=== PATIENT | female | born 1975 | race American Indian/Alaskan Native ===

== ENCOUNTER 2017-02-04 18:30 | Inpatient (IN) | payer MEDICARE, OTHER, MEDICAID ==
--- NOTE | 2017-02-04 19:00 | ED PDOC ---
Psych Transfer Clearance - Clearance Statement Clearance Statement: Reviewed vital signs, lab results and transfer papers. Patient clinically stable for psychiatric admission.
[2017-02-04] MEDS ORDERED: DiphenhydrAMINE 50 mg/ml Inj IM PRN (20:09)
[2017-02-04] MEDS ORDERED: Magnesium Hydroxide Susp 30 ml UD PO PRN (20:09)
[2017-02-04] MEDS ORDERED: Alum-Mag Hydrox-Simethicone Susp (30 mL) PO PRN (20:09)
[2017-02-04] MEDS ORDERED: Bismuth Subsalicylate 262 mg/15 ml Sus (240 ml) PO PRN (20:13)
[2017-02-05 07:47] LABS: MEAN CELL VOLUME 92.1 fl (81.0-99.0); MEAN CORPUSCULAR HEMOGLOBIN 30.4 pg (27.0-31.0); RED CELL DISTRIBUTION WIDTH 12.6 % (11.5-14.5); WHITE BLOOD COUNT 3.2 K/uL (4.8-10.8)
[2017-02-05 07:48] LABS: ALB/GLOB RATIO 1.1 (1.0-2.1); ALKALINE PHOSPHATASE 83 U/L (38-126); ALT/SGPT 35 U/L (9-52); AST/SGOT 33 U/L (14-36); BILIRUBIN,TOTAL 0.6 mg/dl (0.2-1.3); BLOOD UREA NITROGEN 16 mg/dl (7-17); CALCIUM 8.8 mg/dL (8.4-10.2); CARBON DIOXIDE 27 mmol/L (22-30); CHLORIDE 103 mmol/L (98-107); CHOLESTEROL 198 mg/dL (0-199); GFR AFRICAN-AMERICAN > 60; GLUCOSE,RANDOM 85 mg/dL (65-105); POTASSIUM 4.3 MMOL/L (3.6-5.0); SODIUM 141 mmol/l (132-148); TOTAL PROTEIN 7.6 G/DL (6.3-8.2)
[2017-02-05 08:05] LABS: T4 5.32 ug/dl (5.5-11.0)
--- NOTE | 2017-02-05 12:51 | PCM.PSYCH ---
Initial Psychiatric Evaluation - Initial Psychiatric Evaluation Type of Admission: Voluntary Legal Status: Capacity Chief Complaint (in patient's own words): the woman at the snf doesn't like me Patient's Reaction to Hospitalization: cooperative History of Present Illness and Precipitating Events: pt seen in team. she is with a history of schizophrenia and is a transfer from [facility]. she is living in a homeless snf and apparently not getting along with the management. she has frequent hospitalizations for suicide attempts/psychosis. she states that she wanted to overdose because the copyright manager of the snf wouldn't sign a form that would get the pt permanent housing. she states she overdose on half a bottle of effexor and on klonopin. she was medically cleared. she is reporting she feels safe her in the hospital. she endorses that he has times where she is paranoid and delusional but will not elaborate. she was hospitalized a week ago. it is unclear if she takes medications outside of the hospital as she cannot list any active providers. Current Medications: Active Medications Generic Name Dose Route Start Last Admin Trade Name Freq PRN Reason Stop Dose Admin Acetaminophen 650 mg 02/04/17 20:09 Tylenol 325mg Tab PO Q4 PRN pain level 4-7 Al Hydrox/Mg Hydrox/Simethicone 30 ml 02/04/17 20:09 Maalox Plus 30 Ml PO Q4 PRN Dyspepsia Benztropine Mesylate 0.5 mg 02/06/17 09:00 Cogentin PO DAILY DASH Bismuth Subsalicylate 524 mg 02/04/17 20:13 Pepto-Bismol PO Q4 PRN Diarrhea Diphenhydramine HCl 50 mg 02/04/17 20:09 Benadryl PO Q6 PRN Extrapyramidal Symptoms Diphenhydramine HCl 50 mg 02/04/17 20:09 Benadryl IM Q6 PRN Extrapyramidal S/S Unable PO Diphenhydramine HCl 50 mg 02/04/17 20:13 Benadryl PO HS PRN Sleep Haloperidol 5 mg 02/04/17 20:09 Haldol PO Q4 PRN Agitation Haloperidol Lactate 5 mg 02/04/17 20:09 Haldol IM Q4 PRN Agitation, Unable to Take PO Levothyroxine Sodium 150 mcg 02/06/17 09:00 Synthroid PO DAILY DASH Lorazepam 2 mg 02/04/17 20:09 02/04/17 21:49 Ativan PO 2 mg Q4 PRN Administration Anxiety/Agitation Lorazepam 2 mg 02/04/17 20:09 Ativan IM Q4 PRN Anxiety/Agitation,Unable PO Magnesium Hydroxide 30 ml 02/04/17 20:09 Milk Of Magnesia PO HS PRN Constipation Risperidone 1 mg 02/05/17 22:00 Risperdal Tab PO HS DASH Past Psychiatric History - Past Psychiatric History Previous Treatment History: Inpatient At [facility]: [facility] History of Abuse: denies History of ETOH/Drug Use: denies use of alcohol, ? tobacco. denies illicit substance use History of Family Illness: unknown Pertinent Medical Hx (Current Medical&Sleep Prob, Allergies): Allergies Allergy/AdvReac Type Severity Reaction Status Date / Time Penicillins Allergy RASH Verified 02/04/17 18:34 IV contrast dye Allergy RASH Uncoded 02/04/17 18:34 Benztropine [Benztropine Mesylate] 0.5 mg PO DAILY 02/05/17 Clonazepam [Klonopin] 0.5 mg PO TID 02/05/17 FLUoxetine [Prozac] 10 mg PO DAILY 02/05/17 Levothyroxine [Synthroid] 150 mcg PO DAILY 02/05/17 Risperidone [Risperdal] 1 mg PO HS 02/05/17 Venlafaxine [Effexor] 37.5 mg PO DAILY 02/05/17 Review of Systems - Psychiatric Psychiatric: As Per HPI Mental Status Examination - Personal Presentation Personal Presentation: Looks stated age Additional comments: unkempt - Affect Affect: Blunted - Motor Activity Motor Activity: Calm - Reliability in Providing Information Reliability in Providing Information: Poor, due to alteration in thoughts - Speech Speech: Disorganized - Mood Mood: Neutral - Formal Thought Process Formal Thought Process: Delusions, Paranoia, Loosening of associations - Hallucinations/Delusions Delusions: Persecution - Obsessions/Compulsions Obsessions: No Compulsions: No - Cognitive Functions Orientation: Person, Place, Situation, Time Sensorium: Alert Attention/Concentration: Easily distracted Abstract Thinking: Dickson Estimate of Intelligence: Average Judgement: Intact, as evidence by: Insight regarding need for hospitalization Memory: Recent intact, as evidence by: Ability to recall events of the day, Remote intact, as evidenced by: Abilit to recall sig. life events - Risk Risk: Suicidal (multiple overdose attempts. feels safe in hospitals and denies thoughts currently), Diminished functioning - Strength & Assets Inventory Strength & Assets Inventory: Life experience - Limitations Limitations: Other (housing conflicts) DSM 5 DX - DSM 5 DSM 5 Diagnosis: schizoaffective disorder, depressive - Recommended/Plan of Treatment Treatment Recommendations and Plan of Treatment: admit to [facility] for safety and observation gather collateral information provide supportive therapy adjust medications- will dc effexor and klonopin and maximize risperdal/prozac dose- discussed plan with pt hospitalist consult disposition planning Projected ELOS: 3-5 days Prognosis: fair - Smoking Cessation Smoking Cessation Initiated: No Reason for not providing: declines
[2017-02-06] MEDS ORDERED: Levothyroxine 150 MCG TAB PO SCH (06:30)
--- NOTE | 2017-02-06 11:35 | PCM.PYCHPN ---
Psychiatric Progress Note - Psychiatric Progress Note Patient seen today, length of contact: discussed with team Patient Chief Complaint: i slept like a baby Problems Identified/Issues Discussed: no evidence of benzo withdrawal. states she feels less depressed. reports improved sleep. participating in groups. Medication Change: No Medical Record Reviewed: Yes Mental Status Examination - Cognitive Function Orientation: Person, Place, Situation, Time Memory: Intact Attention: WNL Concentration: WNL Association: WNL Fund of Knowledge: [facility] Decription of patient's judgement and insights: fair - Mood Mood: Neutral - Affect Affect: Blunted - Speech Speech: Appropriate - Formal Thought Process Formal Thought Process: Loosening of associations - Suicidal Ideation Suicidal Ideation: No Plan: denies suicidal thoughts - Homicidal Ideation Homicidal Ideation: No Goal/Treatment Plan - Goal/Treatment Plan Need for Continued Stay: Remain at risks for inpatient hospitalization, Severe functional impairment Progress Toward Problem(s) and Goals/Treatment Plan: schizoaffective disorder continue current treatment no medication changes today Estimated Date of D/C: 02/10/17
--- NOTE | 2017-02-06 12:52 | CP.PCM.CON ---
History of Present Illness - History of Present Illness History of Present Illness: Hospitalist Consult H&P (Patient was seen and examined at 11:45 AM 02/06/17 [id number] with Psychiatry Nurse [place]) 41 year old female attempted to overdose with Effexor and Klonopin because the district manager primary care sales at her homeless senior care would not sign documentation that would allow her to obtain permanent housing. Currently upon FULL ROS there is NO chest pain, NO palpitations, NO SOB/Cough/ Wheezing, NO dysphagia/odynophagia, NO abdominal pain, NO n/v/d/c (last bowel movement was yesterday), NO black/bloody stools, NO lightheadedness/dizziness, NO headaches, NO new changes in vision/eye pain, NO new changes in hearing/ear pain, NO edema, NO paresthesias PMHx: Schizophrenia, Suicide Attempt, Hypothyroidism PSHx: Hysterectomy ALL: PCN (edema) Medications: Please see list for Psychiatry Medications. Patient states that she is consistent in taking her Synthroid 150 mcg PO 1x/day Social Hx: Lives in Fdc, NO tobacco, NO Alcohol, NO illicit drugs Family Hx: Mom (DM I), Dad (Unaware of history) Review of Systems - Review of Systems Review of Systems: Please see above Past Patient History - Past Medical History & Family History Pertinent Family History: Please see above - CARDIAC Hx Cardiac Disorders: No - PULMONARY Hx Respiratory Disorders: No - NEUROLOGICAL Hx Neurological Disorder: No - HEENT Hx HEENT Problems: No - RENAL Hx Chronic Kidney Disease: No - ENDOCRINE/METABOLIC Hx Endocrine Disorders: No Hx Hypothyroidism: Yes - HEMATOLOGICAL/ONCOLOGICAL Hx Blood Disorders: No - INTEGUMENTARY Hx Dermatological Problems: No - MUSCULOSKELETAL/RHEUMATOLOGICAL Hx Musculoskeletal Disorders: No - GASTROINTESTINAL Hx Gastrointestinal Disorders: No - GENITOURINARY/GYNECOLOGICAL Hx Genitourinary Disorders: No - PSYCHIATRIC Hx Depression: Yes Hx Substance Use: No - SURGICAL HISTORY Hx Surgeries: No - ANESTHESIA Hx Anesthesia: No Meds Allergies/Adverse Reactions: Allergies Allergy/AdvReac Type Severity Reaction Status Date / Time Penicillins Allergy RASH Verified 02/04/17 18:34 IV contrast dye Allergy RASH Uncoded 02/04/17 18:34 - Medications Medications: Current Medications Acetaminophen (Tylenol 325mg Tab) 650 mg PO Q4 PRN PRN Reason: pain level 4-7 Last Admin: 02/06/17 09:09 Dose: 650 mg Al Hydrox/Mg Hydrox/Simethicone (Maalox Plus 30 Ml) 30 ml PO Q4 PRN PRN Reason: Dyspepsia Benztropine Mesylate (Cogentin) 0.5 mg PO DAILY [facility] Last Admin: 02/06/17 09:04 Dose: 0.5 mg Bismuth Subsalicylate (Pepto-Bismol) 524 mg PO Q4 PRN PRN Reason: Diarrhea Diphenhydramine HCl (Benadryl) 50 mg PO Q6 PRN PRN Reason: Extrapyramidal Symptoms Diphenhydramine HCl (Benadryl) 50 mg IM Q6 PRN PRN Reason: Extrapyramidal S/S Unable PO Diphenhydramine HCl (Benadryl) 50 mg PO HS PRN PRN Reason: Sleep Haloperidol (Haldol) 5 mg PO Q4 PRN PRN Reason: Agitation Haloperidol Lactate (Haldol) 5 mg IM Q4 PRN PRN Reason: Agitation, Unable to Take PO Levothyroxine Sodium (Synthroid) 150 mcg PO DAILY@0630 [facility] Last Admin: 02/06/17 06:17 Dose: 150 mcg Lorazepam (Ativan) 2 mg PO Q4 PRN PRN Reason: Anxiety/Agitation Last Admin: 02/04/17 21:49 Dose: 2 mg Lorazepam (Ativan) 2 mg IM Q4 PRN PRN Reason: Anxiety/Agitation,Unable PO Magnesium Hydroxide (Milk Of Magnesia) 30 ml PO HS PRN PRN Reason: Constipation Risperidone (Risperdal Tab) 1 mg PO HS [facility] Last Admin: 02/05/17 21:16 Dose: 1 mg Physical Exam - Constitutional Appears: Non-toxic, No Acute Distress - Head Exam Head Exam: ATRAUMATIC, NORMAL INSPECTION, NORMOCEPHALIC - Eye Exam Eye Exam: EOMI, Normal appearance, PERRL Pupil Exam: NORMAL ACCOMODATION, PERRL - ENT Exam ENT Exam: Mucous Membranes Moist, Normal Exam, Normal External Ear Exam, Normal Oropharynx - Neck Exam Neck exam: Positive for: Normal Inspection Additional comments: NO Lymphadenopathy NO Thyromegaly - Respiratory Exam Respiratory Exam: Clear to Auscultation Bilateral, NORMAL BREATHING PATTERN Additional comments: CTA B/L NO R/R/W - Cardiovascular Exam Cardiovascular Exam: REGULAR RHYTHM, +S1, +S2 Additional comments: NO M/R/G - GI/Abdominal Exam GI & Abdominal Exam: Normal Bowel Sounds Additional comments: BSx4, Soft, NT, ND, NO HSM, NO guarding/rebound tenderness - Extremities Exam Extremities exam: Positive for: normal inspection Additional comments: Pulses are strong and equal NO edema Capillary Refill is 2 Seconds - Neurological Exam Neurological exam: CN II-XII Intact Results - Vital Signs Recent Vital Signs: Last Vital Signs Temp 97.9 F 02/06/17 09:00 Pulse 79 02/06/17 09:00 Resp 16 02/06/17 09:00 BP 120/71 02/06/17 09:00 Pulse Ox 99 02/06/17 09:00 - Labs Result Diagrams: 02/05/17 07:10 02/05/17 07:10 Labs: Laboratory Results - last 24 hr 02/05/17 07:10 RPR Nonreactive Assessment & Plan (1) Schizoaffective disorder, depressive type Assessment and Plan: Treatment as per Psychiatry Team Status: Acute (2) Chronic knee pain Assessment and Plan: Patient states that she had a fall onto her Left Knee in November 2016 and she states that she had an X ray at [facility] which she states did not show fracture. She states that she had follow up scheduled with an [facility] Orth[facility] physician but missed appointment 2x as the senior care would not arrange for transportation. Exam of the bilateral knees was unremarkable. Non-tender to palpation, NO edema , NO erythema, NO creptis Branding Machine Tender should be consulted to help arrange for patient to be evaluated with outpatient Orthopedics. Status: Chronic (3) Hypothyroid Assessment and Plan: TSH is elevated at 28.3 and T4 is low at 5.32 Questionable if patient is taking the Synthroid regularly as she says is. However, Synthroid has been increased to 175 mcg PO 1x/day and repeat the Thyroid Studies in 4 weeks. Status: Chronic
[2017-02-07] MEDS: Levothyroxine 175 MCG TAB PO SCH (06:36)
--- NOTE | 2017-02-07 11:21 | PCM.PYCHPN ---
Psychiatric Progress Note - Psychiatric Progress Note Patient seen today, length of contact: discussed with team Patient Chief Complaint: i feel better Problems Identified/Issues Discussed: pt visible in milieu. takes medications. no withdrawal symptoms. less internally preoccupied. Medication Change: Yes (restart prozac) Medical Record Reviewed: Yes Mental Status Examination - Cognitive Function Orientation: Person, Place, Situation, Time Memory: Intact Attention: WNL Concentration: WNL Association: WNL Fund of Knowledge: WN Decription of patient's judgement and insights: improving - Mood Mood: Neutral - Affect Affect: Blunted - Speech Speech: Appropriate - Formal Thought Process Formal Thought Process: Loosening of associations - Suicidal Ideation Suicidal Ideation: No - Homicidal Ideation Homicidal Ideation: No Goal/Treatment Plan - Goal/Treatment Plan Need for Continued Stay: Remain at risks for inpatient hospitalization, Severe functional impairment Progress Toward Problem(s) and Goals/Treatment Plan: schizoaffective disorder continue current treatment will restart prozac today Estimated Date of D/C: 02/10/17
[2017-02-07 12:25] VITALS: O2SAT 62
[2017-02-08] MEDS: Levothyroxine 175 MCG TAB PO SCH (06:17)
--- NOTE | 2017-02-08 11:43 | PCM.PYCHPN ---
Psychiatric Progress Note - Psychiatric Progress Note Patient seen today, length of contact: discussed with team Patient Chief Complaint: i feel pretty good Problems Identified/Issues Discussed: pt states she is feeling much better. she is denying medication side effects. no aggression. she denies suicidal thoughts and wants to return to her [place] [facility]. Medication Change: No ( ) Medical Record Reviewed: Yes Mental Status Examination - Cognitive Function Orientation: Person, Place, Situation, Time Memory: Intact Attention: WNL Concentration: WNL Association: WNL Fund of Knowledge: [facility] Decription of patient's judgement and insights: fair - Mood Mood: Neutral - Affect Affect: Blunted - Speech Speech: Appropriate - Formal Thought Process Formal Thought Process: Loosening of associations - Suicidal Ideation Suicidal Ideation: No - Homicidal Ideation Homicidal Ideation: No Goal/Treatment Plan - Goal/Treatment Plan Need for Continued Stay: Remain at risks for inpatient hospitalization, Severe functional impairment Progress Toward Problem(s) and Goals/Treatment Plan: schizoaffective disorder continue current treatment will continue current medications disposition planning Estimated Date of D/C: 02/10/17
[2017-02-09] MEDS: Levothyroxine 175 MCG TAB PO SCH (06:30)
[2017-02-09 09:19] VITALS: RESP 18
--- NOTE | 2017-02-09 10:22 | PCM.PYCHPN ---
Psychiatric Progress Note - Psychiatric Progress Note Patient seen today, length of contact: discussed with team Patient Chief Complaint: i need a med change Problems Identified/Issues Discussed: pt reports she still feels depressed. reports she's been on prozac "forever" and feels it's time to change. reports no se with risperdal. she is more organized in her thoughts. she is attending groups. Medication Change: Yes (dc zoloft and start prozac) Medical Record Reviewed: Yes Mental Status Examination - Cognitive Function Orientation: Person, Place, Situation, Time Memory: Intact Attention: WNL Concentration: WNL Association: WNL Fund of Knowledge: [facility] Decription of patient's judgement and insights: fair - Mood Mood: Depressed - Affect Affect: Blunted - Speech Speech: Appropriate - Formal Thought Process Formal Thought Process: Loosening of associations - Suicidal Ideation Suicidal Ideation: No - Homicidal Ideation Homicidal Ideation: No Goal/Treatment Plan - Goal/Treatment Plan Need for Continued Stay: Remain at risks for inpatient hospitalization, Severe functional impairment Progress Toward Problem(s) and Goals/Treatment Plan: schizoaffective disorder continue current treatment will switch ssri from prozac to zoloft disposition planning Estimated Date of D/C: 02/10/17
[2017-02-10] MEDS: Levothyroxine 175 MCG TAB PO SCH (06:39)
[2017-02-10 09:05] VITALS: BP 129/83; PULSE 74; TEMP 98.4
--- NOTE | 2017-02-10 09:57 | PCM.PYCHDC ---
Mental Status Examination - Mental Status Examination Orientation: Person, Place, Situation, Time Memory: Intact Mood: Neutral Affect: Broad Speech: Appropriate Attention: WNL Concentration: WNL Association: WNL Fund of Knowledge: WNL Formal Thought Process: No Impairment Description of patient's judgement and insight: fair insight and judgment Psychotic Thoughts and Behaviors: pt is denying any a/v hallucinations Suicidal Ideation: No Current Homicidal Ideation?: No Plan: patient is denying any suicidal or homicidal thoughts Discharge Summary - Discharge Note Reason for Hospitalization: pt expressing suicidal thoughts in context of conflicts at her [facility] Consultations:: List each consultation separately and include: 1. Reason for request. 2. Findings. 3. Follow-up Consultations: seen by the hospitalist Summary of Hospital Course include:: 1. Description of specific treatment plan utilized for patients during their course of treatmen. 2. Summarize the time- course for resolution of acute symptoms and/or regressed behaviors. 3. Describe issues identified and worked on during hospitalization. 4. Describe medication utilized. 5. Describe medical problems identified and treated. 6. Reassessment of suicide risk Summary of Hospital Course: pt seen in team. she is with a history of schizophrenia and is a transfer from [facility]. she is living in a homeless fpc and apparently not getting along with the management. she has frequent hospitalizations for suicide attempts/psychosis. she states that she wanted to overdose because the systems integration manager of the fpc wouldn't sign a form that would get the pt permanent housing. she states she overdose on half a bottle of effexor and on klonopin. she was medically cleared. she is reporting she feels safe her in the hospital. she endorses that he has times where she is paranoid and delusional but will not elaborate. she was hospitalized a week ago. it is unclear if she takes medications outside of the hospital as she cannot list any active providers. hospital course pt was admitted to [facility] and oriented to the unit. she was placed on routine safety protocols. she was seen by the hospitalist. pt was started back on her home medications which she tolerated. her prozac was disontinued and changed to zoloft to better target her c/o depression. she tolerated this change. she was active in the groups and socializing with peers. she was goal directed and future oriented and looking forward to return to her outpatient care and to her fpc. at time of discharge she was denying any suicidal or homicidal thoughts. - Final Diagnosis (DSM 5) Condition upon Discharge: STABLE DSM 5: schizoaffective disorder,depressive Disposition: HOME/ ROUTINE Follow-up Treatment Plan: follow up with outpatient appointments as directed take medications as prescribed do not use alcohol, tobacco or other illicit substances call 911 if any suicidal or homicidal thoughts see your primary care doctor as needed Prescriptions/Medication Reconciliation: Benztropine [Cogentin] 0.5 mg PO DAILY #15 Hydrocortisone 1% Cream [Cortizone 1% Cream] 1 applic TOP BID #1 Levothyroxine [Synthroid] 175 mcg PO DAILY@0630 #15 tab Risperidone [Risperdal] 1 mg PO HS #15 Sertraline [Zoloft] 25 mg PO DAILY #15 tab - Smoking Cessation Smoking Cessation Medication prescribed: No Reason for not providing: declines - Antipsychotic Medications Pt discharged on 2 or more routine antipsychotic medications: No
== END 2017-02-10 15:47 | disposition home or self-care (01) | DRG 885 ==
LOC: H.ER 18:30 → H.ERHOLD 19:00 → H.PSYCH 19:05
PROVIDERS: ADMIT Psychiatry & Neurology Psychiatry; ATTEND Psychiatry & Neurology Psychiatry
PROC: GZHZZZZ Group Psychotherapy (ICD-10-PCS; principal; 2017-02-04)
PROC: GZ56ZZZ Individual Psychotherapy, Supportive (ICD-10-PCS; 2017-02-04)
DX: F25.1 Schizoaffective disorder, depressive type (principal); Z59.0 Homelessness; R45.851 Suicidal ideations; E03.9 Hypothyroidism, unspecified; Z88.0 Allergy status to penicillin; Z91.041 Radiographic dye allergy status; G89.29 Other chronic pain

== ENCOUNTER 2017-02-24 19:51 | Inpatient (IN) | payer MEDICARE, MEDICAID ==
--- NOTE | 2017-02-24 20:01 | ED PDOC ---
Psych Transfer Clearance - Clearance Statement Clearance Statement: Reviewed vital signs. Lab results and transfer papers reviewed by Dr Fleming who cleared pt for transfer. Patient clinically stable for psychiatric admission.
[2017-02-24] MEDS ORDERED: DiphenhydrAMINE 50 mg/ml Inj IM PRN (20:30)
[2017-02-24] MEDS ORDERED: Alum-Mag Hydrox-Simethicone Susp (30 mL) PO PRN (20:30)
[2017-02-24] MEDS ORDERED: Magnesium Hydroxide Susp 30 ml UD PO PRN (20:30)
[2017-02-24] MEDS ORDERED: Bismuth Subsalicylate 262 mg/15 ml Sus (240 ml) PO PRN (20:33)
[2017-02-25 07:47] LABS: T4 8.59 ug/dl (5.5-11.0)
[2017-02-25 08:01] LABS: THYROID STIMULATING HORMONE 10.8 mIU/ML (0.46-4.68)
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
--- NOTE | 2017-02-25 19:25 | CP.PCM.CON ---
History of Present Illness - History of Present Illness History of Present Illness: 41 yo female admitted to psyche unit because of suicidal ideation. Review of Systems - Review of Systems All systems: reviewed and no additional remarkable complaints except (aside from those mentioned above, 12 point system review were negative by me) Past Patient History - Past Social History Smoking Status: Never Smoked Chewing Tobacco Use: No Cigar Use: No Alcohol: None Drugs: Denies Home Situation {Lives}: Homeless - CARDIAC Hx Cardiac Disorders: No - PULMONARY Hx Respiratory Disorders: No - NEUROLOGICAL Hx Neurological Disorder: No - HEENT Hx HEENT Problems: No - RENAL Hx Chronic Kidney Disease: No - ENDOCRINE/METABOLIC Hx Endocrine Disorders: Yes Hx Hypothyroidism: Yes - HEMATOLOGICAL/ONCOLOGICAL Hx Blood Disorders: No - INTEGUMENTARY Hx Dermatological Problems: No - MUSCULOSKELETAL/RHEUMATOLOGICAL Hx Musculoskeletal Disorders: No - GASTROINTESTINAL Hx Gastrointestinal Disorders: No - GENITOURINARY/GYNECOLOGICAL Hx Genitourinary Disorders: No - PSYCHIATRIC Hx Substance Use: No - SURGICAL HISTORY Hx Surgeries: Yes Hx Arthroscopy: Yes (both knees) Hx Hysterectomy: Yes (2011) - ANESTHESIA Hx Anesthesia: Yes Hx Anesthesia Reactions: No Hx Malignant Hyperthermia: No Meds Allergies/Adverse Reactions: Allergies Allergy/AdvReac Type Severity Reaction Status Date / Time Penicillins Allergy RASH Verified 02/24/17 23:40 sertraline [From Zoloft] Allergy SWELLING Verified 02/24/17 23:40 IV contrast dye Allergy RASH Uncoded 02/24/17 23:40 - Medications Medications: Current Medications Acetaminophen (Tylenol 325mg Tab) 650 mg PO Q4 PRN PRN Reason: pain level 4-7 Al Hydrox/Mg Hydrox/Simethicone (Maalox Plus 30 Ml) 30 ml PO Q4 PRN PRN Reason: Dyspepsia Benztropine Mesylate (Cogentin) 0.5 mg PO HS [facility] Bismuth Subsalicylate (Pepto-Bismol) 524 mg PO Q4 PRN PRN Reason: for diarrhea Citalopram Hydrobromide (Celexa) 10 mg PO DAILY [facility] Last Admin: 02/25/17 11:09 Dose: 10 mg Diphenhydramine HCl (Benadryl) 50 mg IM Q6 PRN PRN Reason: Extrapyramidal S/S Unable PO Diphenhydramine HCl (Benadryl) 50 mg PO Q6 PRN PRN Reason: Extrapyramidal Symptoms Diphenhydramine HCl (Benadryl) 50 mg PO HS PRN PRN Reason: Sleep Last Admin: 02/24/17 22:00 Dose: 50 mg Haloperidol (Haldol) 5 mg PO Q4 PRN PRN Reason: Agitation Last Admin: 02/25/17 14:28 Dose: 5 mg Haloperidol Lactate (Haldol) 5 mg IM Q4 PRN PRN Reason: Agitation, Unable to Take PO Levothyroxine Sodium (Synthroid) 150 mcg PO DAILY@0630 DASH Lorazepam (Ativan) 2 mg IM Q4 PRN PRN Reason: Anxiety/Agitation,Unable PO Lorazepam (Ativan) 2 mg PO Q4 PRN PRN Reason: Anxiety/Agitation Magnesium Hydroxide (Milk Of Magnesia) 30 ml PO HS PRN PRN Reason: Constipation Risperidone (Risperdal Tab) 1 mg PO HS DASH Physical Exam - Constitutional Appears: No Acute Distress - Head Exam Head Exam: ATRAUMATIC - Eye Exam Eye Exam: PERRL - ENT Exam ENT Exam: Mucous Membranes Moist - Neck Exam Neck exam: Negative for: Meningismus - Respiratory Exam Respiratory Exam: NORMAL BREATHING PATTERN. absent: Rhonchi, Wheezes, Respiratory Distress - Cardiovascular Exam Cardiovascular Exam: REGULAR RHYTHM, +S1, +S2 - GI/Abdominal Exam GI & Abdominal Exam: Soft. absent: Tenderness - Rectal Exam Rectal Exam: Deferred - Neurological Exam Neurological exam: Alert, Oriented x3 - Psychiatric Exam Psychiatric exam: Normal Affect - Skin Skin Exam: Dry, Intact Results - Vital Signs Recent Vital Signs: Last Vital Signs Temp 97.7 F 02/25/17 09:00 Pulse 61 02/25/17 09:00 Resp 16 02/25/17 09:00 BP 136/78 02/25/17 09:00 Pulse Ox 99 02/25/17 09:00 - Labs Labs: Laboratory Results - last 24 hr 02/25/17 02/25/17 06:00 06:00 Hemoglobin A1c 4.9 Triglycerides 60 Cholesterol 179 LDL Cholesterol Direct 72 HDL Cholesterol 68 Thyroxine (T4) 8.59 TSH 3rd Generation 10.80 H Assessment & Plan (1) Suicidal thoughts Status: Acute Comment: psyche is managing (2) Hypothyroid Status: Chronic - Assessment and Plan (Free Text) Plan: TSH: 10.80 patient not compliant with medication for financial reason Levothyroxine 150mcg PO daily
[2017-02-26] MEDS: Levothyroxine 150 MCG TAB PO SCH (06:43)
--- NOTE | 2017-02-26 09:53 | PCM.PYCHPN ---
Psychiatric Progress Note - Psychiatric Progress Note Patient seen today, length of contact: discussed with team Patient Chief Complaint: no c/o Problems Identified/Issues Discussed: pt is dishevelled, thoughts are disorganized. she is isolating in her room. she denies medication side effects. pt is internally preoccupied. Medication Change: Yes Medical Record Reviewed: Yes Mental Status Examination - Cognitive Function Orientation: Person, Place, Situation, Time Memory: Intact Attention: WNL Concentration: WNL Association: WNL Fund of Knowledge: WN Decription of patient's judgement and insights: fair - Mood Mood: Depressed, Anxious - Affect Affect: Blunted - Speech Speech: Appropriate - Formal Thought Process Formal Thought Process: Hallucinations, Loosening of associations - Suicidal Ideation Suicidal Ideation: No - Homicidal Ideation Homicidal Ideation: No Goal/Treatment Plan - Goal/Treatment Plan Need for Continued Stay: Remain at risks for inpatient hospitalization, Discharge may exacerbated symptoms Progress Toward Problem(s) and Goals/Treatment Plan: schizoaffective disorder continue with current treatment will increase the risperdal and celexa to target her mood/psychosis refer back to her php program early next week if continues to improve. Estimated Date of D/C: 03/02/17
[2017-02-27] MEDS: Levothyroxine 150 MCG TAB PO SCH (07:06)
--- NOTE | 2017-02-27 09:56 | PCM.PYCHPN ---
Psychiatric Progress Note - Psychiatric Progress Note Patient seen today, length of contact: Patient evaluated, case discussed with staff, chart reviewed Patient Chief Complaint: "I'm starting to feel better." Problems Identified/Issues Discussed: No significant events overnight. Patient calm/cooperative towards process description writer. She denied AH/VH/paranoia/delusions. She does acknowledge that her thoughts are not clear and she was disorganized/non-linear during the interview at times. She reports compliance with medications and denied current adverse effects. No SI/HI. Medication Change: No Medical Record Reviewed: Yes Mental Status Examination - Cognitive Function Orientation: Person, Place, Situation, Time Memory: Intact Attention: WNL Concentration: WNL Association: WNL Fund of Knowledge: [facility] Decription of patient's judgement and insights: Fair I/J - Mood Mood: Anxious - Affect Affect: Constricted - Speech Speech: Appropriate - Formal Thought Process Formal Thought Process: Loosening of associations Psychotic Thoughts and Behaviors: Denied current AH/VH, +Disorganized on interview, +internal preoccupation - Suicidal Ideation Suicidal Ideation: No - Homicidal Ideation Homicidal Ideation: No Goal/Treatment Plan - Goal/Treatment Plan Need for Continued Stay: Remain at risks for inpatient hospitalization, Discharge may exacerbated symptoms Progress Toward Problem(s) and Goals/Treatment Plan: 41 yo female w/ schizoaffective disorder, reports subjective improvement, but she continues to be disorganized and internally preoccupied. She requires continued hospitalization for treatment and stabilization. -Continue Cogentin 0.5 mg PO HS, Celexa 20 mg PO Daily, Risperdal 2 mg PO HS -Individual and group therapy -Medicine consult appreciated Estimated Date of D/C: 03/02/17
[2017-02-27 17:48] VITALS: O2SAT 99
[2017-02-28] MEDS: Levothyroxine 150 MCG TAB PO SCH (06:34)
--- NOTE | 2017-02-28 11:10 | PCM.PYCHPN ---
Psychiatric Progress Note - Psychiatric Progress Note Patient seen today, length of contact: Patient evaluated, case discussed with staff, chart reviewed Patient Chief Complaint: "My thoughts are getting clearer" Problems Identified/Issues Discussed: Patient reports that her thoughts are getting "clearer", she did seem overly concerned that she accidentally walked into someone else's room and was worried that she might be confused. Overall, she is more organized and linear during the interview. No significant events overnight. Patient calm/cooperative towards group underwriter. She denied AH/VH/paranoia/delusions. She reports compliance with medications and denied current adverse effects. No SI/HI. Medication Change: No Medical Record Reviewed: Yes Mental Status Examination - Cognitive Function Orientation: Person, Place, Situation, Time Memory: Intact Attention: WNL Concentration: WNL Association: WNL Fund of Knowledge: WN Decription of patient's judgement and insights: Fair I/J - Mood Mood: Anxious - Affect Affect: Constricted - Speech Speech: Appropriate - Formal Thought Process Formal Thought Process: Loosening of associations Psychotic Thoughts and Behaviors: Denied current AH/VH - Suicidal Ideation Suicidal Ideation: No - Homicidal Ideation Homicidal Ideation: No Goal/Treatment Plan - Goal/Treatment Plan Need for Continued Stay: Remain at risks for inpatient hospitalization, Discharge may exacerbated symptoms Progress Toward Problem(s) and Goals/Treatment Plan: 41 yo female w/ schizoaffective disorder, is starting to improve clinically, as she is more organized and less internally preoccupied. She requires continued hospitalization for treatment and stabilization. -Continue Cogentin 0.5 mg PO HS, Celexa 20 mg PO Daily, Risperdal 2 mg PO HS -Individual and group therapy -Medicine consult appreciated Estimated Date of D/C: 03/02/17
[2017-03-01] MEDS: Levothyroxine 150 MCG TAB PO SCH (06:56)
[2017-03-01 09:55] VITALS: BP 128/80; PULSE 61; RESP 16; TEMP 97.5
--- NOTE | 2017-03-01 12:15 | PCM.PYCHDC ---
Mental Status Examination - Mental Status Examination Orientation: Person, Place, Situation, Time Memory: Intact Mood: Neutral Affect: Broad Speech: Appropriate Attention: WNL Concentration: WNL Association: WNL Fund of Knowledge: WNL Formal Thought Process: No Impairment Description of patient's judgement and insight: fair Psychotic Thoughts and Behaviors: denies a/v hallucinations. thoughts are more organized Suicidal Ideation: No Current Homicidal Ideation?: No Plan: pt denies any suicidal or homicidal thoughts/plan or intent. Discharge Summary - Discharge Note Reason for Hospitalization: not adherent to treatment, depression, psychosis Psychiatric History (includes Medical, Family, Personal Hx): history of schizoaffective disorder Consultations:: List each consultation separately and include: 1. Reason for request. 2. Findings. 3. Follow-up Consultations: seen by hospitalist Summary of Hospital Course include:: 1. Description of specific treatment plan utilized for patients during their course of treatmen. 2. Summarize the time- course for resolution of acute symptoms and/or regressed behaviors. 3. Describe issues identified and worked on during hospitalization. 4. Describe medication utilized. 5. Describe medical problems identified and treated. 6. Reassessment of suicide risk Summary of Hospital Course: pt reports she [facility]. states she starte "swelling" and wanted to go the the doctor. said the medical receptionist assistant "gave me an attitude" states she then stopped all meds. states she just wants to restart her medications. states she felt suicidal when frustrated but is feeling safe now. pt is reporting she was hearing voices after stopping meds. reports she is depressed, hopeless and feels pessimistic that a medication won't work for her. she still [facility] to [facility] to her [facility]. hospital course [facility] and oriented to the unit. pt placed on routine safety protocols. pt started on her outpt medications. she participated in treatment. she was denying any suicidal or homicidal thoughts/plans or intent. she was willing to follow up with aftercare treatment. - Final Diagnosis (DSM 5) Condition upon Discharge: STABLE DSM 5: schizoaffective disorder Disposition: HOME/ ROUTINE Follow-up Treatment Plan: follow up with aftercare appointments as directed take medications as prescribed do not use alcohol, tobacco or other illicit substances call 911 if any suicidal or homicidal thoughts Prescriptions/Medication Reconciliation: Benztropine [Cogentin] 0.5 mg PO HS #30 tab Citalopram [celEXA] 20 mg PO DAILY #30 tab Levothyroxine [Synthroid] 150 mcg PO DAILY@0630 #30 tab risperiDONE [RisperDAL Tab] 2 mg PO HS #30 tab - Smoking Cessation Smoking Cessation Medication prescribed: No Reason for not providing: declines - Antipsychotic Medications Pt discharged on 2 or more routine antipsychotic medications: No
== END 2017-03-01 16:55 | disposition home or self-care (01) | DRG 885 ==
LOC: H.ER 19:51 → H.PSYCH 20:00
PROVIDERS: ADMIT Psychiatry & Neurology Psychiatry; ATTEND Psychiatry & Neurology Psychiatry
PROC: GZHZZZZ Group Psychotherapy (ICD-10-PCS; principal; 2017-02-24)
PROC: GZ58ZZZ Individual Psychotherapy, Cognitive-Behavioral (ICD-10-PCS; 2017-02-24)
DX: F25.9 Schizoaffective disorder, unspecified (principal); E03.9 Hypothyroidism, unspecified; Z59.0 Homelessness; Z88.0 Allergy status to penicillin; Z91.041 Radiographic dye allergy status